=== PATIENT | male | born 1970 | race Caucasian/White ===

== ENCOUNTER 2019-11-27 06:47 | Inpatient (IN) | payer OTHER ==
[~2019-11-27] VITALS: Ht 175.3 cm; Wt 114.8 kg
[~2019-11-27 06:47] MED LIST: ASPIRIN EC81 M1 PO; CARVEDILOL6.25 MG PO; CELEXA20 MG PO; EFFIENT10 MG PO; LIPITOR 20 MG T20 M1 PO; LISINOPRIL5 MG PO; METFORMIN HCL500 MG PO; NITROGLYCERIN0.4 MG SUBLING; PLAVIX 75 MG TA75 M1 PO; STATINS; TOPROL XL100 MG PO
[2019-11-27 06:50] VITALS: BP 169/99
[2019-11-27 07:12] LABS: ABSOLUTE BASOPHILS 0.1 thou/uL (0.0-0.2); ABSOLUTE EOSINOPHILS 0.4 thou/uL (0.0-0.7); ABSOLUTE LYMPHOCYTES 3.2 thou/uL (0.8-5.3); ABSOLUTE MONOCYTES 1.2 thou/uL (0.0-1.2); ABSOLUTE NEUTROPHILS 7.1 thou/uL (1.6-8.1); BASOPHILS 1.2 %; EOSINOPHILS 3.4 %; HEMATOCRIT 52.6 % (42.0-52.0); LYMPHOCYTES 26.8 %; MCHC 34.3 g/dL (28.0-37.0); MCV 87.5 fL (80.0-100.0); MONOCYTES 9.9 %; MPV 9.6 fl. (7.2-11.1); NUCLEATED RBCS 0 /100WBC; PLATELET COUNT* 275 thou/uL (150-400); POLYS 58.7 %; RBC 6.01 mil/uL (4.50-6.00); RDW-CV 14.7 % (10.5-14.5)
[2019-11-27 07:23] LABS: CALCIUM 9.2 mg/dL (8.5-10.1); CREATININE 1.6 mg/dL (0.6-1.3)
[2019-11-27 07:25] LABS: POTASSIUM 4.3 mmol/L (3.5-5.1); PROTIME 10.2 Seconds (9.20-11.50)
[2019-11-27 07:38] LABS: CK-MB MASS 4.5 ng/mL (<0.5-3.6); MAGNESIUM 1.7 mg/dL (1.8-2.4); TOTAL BILIRUBIN 1.4 mg/dL (<0.1-1.0); TOTAL PROTEIN 8.3 g/dL (6.4-8.2)
--- NOTE | 2019-11-27 12:58 | EKG ---
[place] [address] ELECTROCARDIOGRAM REPORT Name: ALEXANDRU STEARNS Room: [place] [address] ADM IN .R.#: [id number] Admission: 11/27/19 Attend Phys: Joshua Rios, Discharge: Date of : 66 Date of Service: 11/27/19 0649 Report #: [id number] THIS REPORT FOR: //name// [facility] ED Test Date: 2019-11-27 Test Time: 06:49:53 Pat Name: ALEXANDRU STEARNS Department: Room: [facility] Gender: M Fisher Dip Net: MARCIO : 1970 Requested By: Sky Alcantara Order Number: [id number] MD: Marcus Jenkins Measurements Intervals [place] Rate: 148 P: LA: QRS: 7 QRSD: 108 T: 172 QT: 288 QTc: 453 Interpretive Statements Atrial fibrillation LVH with secondary repolarization abnormality Anterior Q waves, possibly due to LVH Compared to ECG 03/08/2017 05:31:39 Left ventricular hypertrophy now present Early repolarization now present Sinus bradycardia no longer present Electronically Signed On 11-27-2019 12:56:55 CDT by Marcus Jenkins [email or web address] <ELECTRONICALLY SIGNED> By: Marcus Jenkins MD, FAC 11/27/19 1256 0649 0649 Marcus Jenkins MD, FAC /EPI
[2019-11-27 13:18] VITALS: BP 123/80
[2019-11-27 14:09] VITALS: BP 103/61
[2019-11-27 15:00] VITALS: BP 130/86
--- NOTE | 2019-11-27 15:44 | 2DMMODE ---
[place] [address] 2 D/M-MODE ECHOCARDIOGRAM Name: ALEXANDRU STEARNS Room: [address] IN .Edvin.#: [id number] Admission: 11/27/19 Attend Phys: Joshua Rios, Discharge: Date of : 66 Date of Service: 11/27/19 1542 Report #: [id number] THIS REPORT FOR: cc: FAM - No family physician/PCP FAM - No family physician/PCP Marcus Jenkins MD [facility] ~ APPROVED REPORT Study performed: 11/27/2019 13:55:36 EXAM: Comprehensive 2D, Doppler, and color-flow Echocardiogram Patient Location: ER BSA: 2.31 HR: 77 bpm BP: 110/72 mmHg Other Information Study Quality: Fair Technically limited study due to uncooperative patient. Indications Atrial Fibrillation 2D Dimensions IVSd: 9.39 (7-11mm) LVOT Diam: 19.31 (18-24mm) LVDd: 52.55 mm PWd: 13.17 (7-11mm) Ascending Ao: 35.83 (22-36mm) LVDs: 42.56 (25-40mm) Aortic Root: 29.79 mm Volumes Left Atrial Volume (Systole) LA ESV Index: 30.30 mL/m2 Aortic Valve AoV Peak Jelani.: 0.99 m/s AO Peak Gr.: 3.92 mmHg LVOT Max P.45 mmHg AO Mean Gr.: 2.43 mmHg LVOT Mean P.17 mmHg LVOT Max V: 0.78 m/s AO V2 VTI: 13.21 cm LVOT Mean V: 0.50 m/s BERNARD (VTI): 2.45 cm2 LVOT V1 VTI: 11.06 [place] [address] 2 D/M-MODE ECHOCARDIOGRAM Name: ALEXANDRU STEARNS Room: [address] IN ..#: [id number] Admission: 11/27/19 Attend Phys: Joshua Rios, Discharge: Date of : 66 Date of Service: 11/27/19 1542 Report #: [id number] Mitral Valve E/A Ratio: 4.42 MV Decel. Time: 232.26 ms MV E Max Jelani.: 1.06 m/s MV PHT: 67.36 ms MVA (PHT): 3.27 cm2 TDI E/Lateral E': 11.78 E/Medial E': 13.25 Medial E' Jelani.: 0.08 m/s Lateral E' Jelani.: 0.09 m/s Pulmonary Valve PV Peak Jelani.: 0.85 m/s PV Peak Gr.: 2.89 mmHg Tricuspid Valve RAP Estimate: 5.00 mmHg TR Peak Gr.: 22.33 mmHg RVSP: 27.33 mmHg PA Pressure: 27.33 mmHg Left Ventricle The left ventricle is normal size. Moderate hypokinesis noted of the distal anteroseptal wall Mild concentric left ventricular hypertrophy. Left ventricular systolic function is moderately decreased. LVEF is 35-40%. Right Ventricle Right ventricle is borderline dilated. The right ventricular systolic function is normal. Atria The left atrium size is normal. Interatrial septum not well visualized. The right atrium size is normal. Aortic Valve The aortic valve is normal in structure. No aortic regurgitation is present. There is no aortic valvular stenosis. Mitral Valve The mitral valve is normal in structure. There is no mitral valve regurgitation noted. No evidence of mitral valve stenosis. Tricuspid Valve The tricuspid valve is normal in structure. Mild [place]icus[place] [address] 2 D/M-MODE ECHOCARDIOGRAM Name: ALEXANDRU STEARNS [place] Room: [address] IN [facility]#: [id number] Admission: 11/27/19 Attend Phys: Joshua Rios, Discharge: Date of : 66 Date of Service: 11/27/19 1542 Report #: [id number] Pulmonic Valve The pulmonary valve is normal in structure. There is no pulmonic valvular regurgitation. Great Vessels The aortic root is normal in size. IVC is not visualized. Pericardium There is no pericardial effusion. <Conclusion> Mild concentric left ventricular hypertrophy. LVEF is 35-40%. Moderate hypokinesis noted of the distal anteroseptal wall <ELECTRONICALLY SIGNED> By: Marcus Jenkins MD, [facility] 11/27/19 1542 1542 1542 Marcus Jenkins MD, FACC /INF
--- NOTE | 2019-11-27 16:51 | NUR ---
PT ADMITTED TO ROOM 219 FROM ED WITH AFIB RVR.CARDIZEM GTT STARTED IN ED AT 10 ML/HR. PT STILL AFIB ON MONITOR WITH RATE IN 70'S.PT SLEEPING AND LETHARGIC. VSS ON RA. PT IS UNABLE TO ANSWER MOST OF QUESTIONS APPROPRIATELY AT THIS TIME R/T BEING TIRED. CARDIOLOGY ROUNDED ON PT. EXIT ALARM IN PLACE.
--- NOTE | 2019-11-27 17:54 | NUR ---
PT IS AWAKE AT THIS TIME. PLEASANT. EDUCATED ON TREATMENTS, PLAN OF CARE, MEDICATIONS AND ACTIVITY. CLWR
[2019-11-27 20:00] VITALS: BP 90/57
[2019-11-28] VITALS: BP 108/73
--- NOTE | 2019-11-28 03:47 | NUR ---
ASSESSMENTS COMPLETED AT BEDSIDE PLEASE REFER TO CHARTING. MEDICATIONS ADMINISTERED PER MAR. PT HAS BEEN YELLING OUT BUT THEN STATES HE IS FINE WHEN YOU GO IN THERE. PT BEEN IMPULSIVE, GETTING UP WITHOUT ASSISTANCE AND SCREAMING. PT HAS MADE INAPPROPRAITE COMMENTS, ASKING NURSE GET GET IN BED WITH HIM AND TOUCHING LEG OF NURSE. PT WAS USING CHEWING TOBACCO AND WAS EDUCATED THAT IT WAS AGAINST OUR POLICES FOR HIM TO HAVE THAT. PT HAS HAD NO C/O PAIN THIS SHIFT. CURRENTLY IN RECLINER WITH CALL LIGHT WITHIN REACH.
[2019-11-28 04:10] VITALS: BP 127/82
[2019-11-28 04:57] LABS: HEMATOCRIT 46.7 % (42.0-52.0); MCH 30.1 pg (26.0-34.0); MCHC 34.1 g/dL (28.0-37.0); MCV 88.3 fL (80.0-100.0); MPV 10.2 fl. (7.2-11.1); RBC 5.29 mil/uL (4.50-6.00); RDW-CV 15.2 % (10.5-14.5); WBC 9.6 thou/uL (4.0-11.0)
[2019-11-28 05:07] LABS: HEMOGLOBIN 15.9 gm/dL (14.0-18.0)
[2019-11-28 05:15] LABS: ANION GAP 10 mmol/L (7-16); BUN 34 mg/dL (7-18); CALCIUM 8.5 mg/dL (8.5-10.1); CHLORIDE 101 mmol/L (98-107); CHOLESTEROL 238 mg/dL (<200); CO2 23 mmol/L (21-32); CREATININE 1.4 mg/dL (0.6-1.3); GLUCOSE 252 mg/dL (70-99); HDL CHOLESTEROL 28 mg/dL (>40); LDL CHOLESTEROL 165 mg/dL (<100); MAGNESIUM 1.6 mg/dL (1.8-2.4); POTASSIUM 4.1 mmol/L (3.5-5.1); SERUM ASSESSMENT CLEAR; SODIUM 134 mmol/L (136-145); TC:HDL 8.5 Ratio (Not establshd); TRIGLYCERIDE 228 mg/dL (<150); VLDL 46 mg/dL (<40)
[2019-11-28 07:09] LABS: GLYCOHEMOGLOBIN (HGB A1C) 9.7 % (4.8-5.6)
[2019-11-28 08:00] VITALS: BP 145/105
[2019-11-28 11:30] VITALS: BP 144/103
[2019-11-28 17:34] VITALS: BP 137/95
--- NOTE | 2019-11-28 19:27 | NUR ---
PT. AGITATED AND RESTLESS AT ASSUMTPTION OF SHIFT AND THROUGHOUT. REFUSED POST CATH VITAL SIGNS AND ASSESSMENT. DR. RM AND CHARGE NURSE NOTIFIED. PT. VERBALLY ABUSIVE, PULLED OUT PIV ON L AC. MIGUEL BANDAGE APPLIED TO PREVENT BLEEDING. PT REFUSED TO WEAR GOWN FOR TELEPACK STORAGE CAUSING LEAD FAILURES. IVF INFUSING IN PIV ON R FA. HOURLY ROUNDING PERFORMED. CALL LIGHT AND PERSONAL BELONGINGS PLACED WITHIN REACH. PT. CURRENTLY IN BED AND APPEARS CALM.
[2019-11-28 20:00] VITALS: BP 155/98
[2019-11-29 00:08] VITALS: BP 150/70
[2019-11-29 04:00] VITALS: BP 189/98
--- NOTE | 2019-11-29 04:31 | NUR ---
PT ALERT ORIENTED. UP AD ANYN IN ROOM. PT HAD CP AND R RADIAL PAIN TYLENOL GIVEN. PT CALLED OUT STATING HE WAS ANXIOUS. LORAZEPAM GIVEN. TELEMETRY SHOWS SR. WILL CONTINUE TO MONITOR.
[2019-11-29 05:09] LABS: HEMATOCRIT 43.3 % (42.0-52.0); HEMOGLOBIN 14.6 gm/dL (14.0-18.0); MCH 29.8 pg (26.0-34.0); MCHC 33.7 g/dL (28.0-37.0); MCV 88.2 fL (80.0-100.0); MPV 10.2 fl. (7.2-11.1); RBC 4.91 mil/uL (4.50-6.00); RDW-CV 14.8 % (10.5-14.5)
[2019-11-29 05:24] LABS: CALCIUM 8.1 mg/dL (8.5-10.1); CREATININE 1.3 mg/dL (0.6-1.3); POTASSIUM 4.1 mmol/L (3.5-5.1); TROPONIN-I LEVEL 0.39 ng/mL (<0.06)
[2019-11-29 08:00] VITALS: BP 146/84
[2019-11-29 12:37] VITALS: BP 154/95
[2019-11-29 16:32] VITALS: BP 204/99
--- NOTE | 2019-11-29 18:59 | NUR ---
PT VSS, A&OX4- SIGNIFICANT ANXIETY, SR ON TELE, DAY 1 POST CATH- RIGHT RADIAL SITE, CLEAN, DRY, NO HEMATOMA, ROOM AIR SATS HIGH 90S BUT REPORTS DIFFICULTY BREATHING. TELE PSYCH CONSULT TODAY, BEHAVIORLY COMPLEX, HOURLY ROUNDING PERFORMED, POSSESSION AND CALL LIGHT WITHIN REACH.
[2019-11-29 20:00] VITALS: BP 168/91
[2019-11-30 04:00] VITALS: BP 159/99
[2019-11-30 08:01] VITALS: BP 143/87
--- NOTE | 2019-11-30 09:12 | NUR ---
ASSUMED CARE OF PT THIS AM AROUND 07- ENERGY AUDITOR IN PLACE ORDERED, TRACING SR- UPON ASSESSMENT PT NOTED TO BE RESTING IN BED- PT A&O X4, FLAT AFFECT- CONT OF BOWEL AND BLADDER- UP AD-ANNY IN ROOM, STEADY GAIT NOTED- DIMINISHED LUNG SOUNDS NOTED, DYSPNEA NOTED ON EXERTION- VSS, O2 SAT 95-96%ON RA- ABD FIRM/ROUND/OBESE, BS X4 QUADS- LAST BM REPORTED 11/29/19- IV NOTED TO RIGHT AC INTACT AND SL- TRACE EDEMA NOTED TO BLE- RIGHT WRIST CATH SITE NOTED TO BE C/D/I WITH BANDAIDE TO SITE- BS MONITORED ORDERED WITH SSI PRESCRIBED- PT DENIES ANY C/O PAIN/DISCOMFORT AT THIS TIME- CALL LIGHT AND PERSONAL BELONGINGS WITH IN REACH- PT MAKES NEEDS KNOWN- ALL NEEDS MET AT THIS TIME-WCTM
[2019-11-30] MEDS ORDERED: CARVEDILOL3.125 MG PO (10:09)
[2019-11-30] MEDS ORDERED: COZAAR 50 MG TA50 M1 PO (10:09)
[2019-11-30] MEDS ORDERED: CLOPIDOGREL75 MG PO (10:09)
[2019-11-30] MEDS ORDERED: PAXIL 20 MG TAB20 M1 PO (10:09)
[2019-11-30] MEDS ORDERED: DILTIAZEM ER240 M1 PO (10:09)
[2019-11-30] MEDS ORDERED: TRAZODONE HCL100 MG PO (10:09)
[2019-11-30] MEDS ORDERED: HYDROXYZINE HCL25 M2 PO (10:09)
[2019-11-30] MEDS ORDERED: LASIX 40 MG TAB40 MG PO (10:11)
[2019-11-30] MEDS ORDERED: LIPITOR40 MG PO (10:12)
[2019-11-30 11:05] VITALS: BP 143/87
[2019-11-30 11:10] VITALS: BP 143/87
[2019-11-30] MEDS ORDERED: TOPROL XL100 MG PO (13:52)
[2019-11-30] MEDS ORDERED: LISINOPRIL5 MG PO (13:54)
[2019-11-30] MEDS ORDERED: NITROSTAT0.4 M1 PO (13:55)
--- NOTE | 2019-12-01 12:55 | CARD ---
[address] [address] CARDIAC CATH REPORT Name: ALEXANDRU STEARNS Room: [address]#: [id number] Admission: 11/27/19 Attend Phys: Joshua Rios MD Discharge: 11/30/19 Date of : 66 Report #: [id number] THIS REPORT FOR: //name// cc: YAQUELIN Pop No family physician/PCP YAQUELIN - No family physician/PCP ~ APPROVED REPORT Study performed: 11/28/2019 08:34:07 Patient Details Patient Status: In-Patient Room #: The patient is a 49 year-old male Event Personnel Marcus Jenkins Manufacturing Supervisor 2Nd Shift, Catherine Henriquez Wine Manager, Geneva Hoffman RTR Scrub, Rylie Thakkar RTR Monitor Procedures Performed Art Access - R radial artery, Left Heart Cath w/or w/o Coronaries LHC, ANAY Place w/wo Plasty Single CIRC , Hemostasis with Hemoband Indication Unstable angina , Chest pain Risk Factors Hypercholesterolemia, Hypertension, Diabetes Previous Procedures/Diagnoses Previous PCI, Previous [place] Admission/Lab Medications/Medications given during procedure Glycoprotein IllbIlla Inhibitors, Heparin Unfract., Nitroglycerin IA bolus 400 mcg total, Verapamil IA bolus 5 mg total, Heparin IV bolus 7000 units total, Aggrastat IV bolus 12 ml, Plavix PO 600 mg Procedure Narrative The patient was brought electively to the Cardiac Catheterization Laboratory and was prepped and draped in a sterile manner. The right wrist was infiltrated with 1% Lidocaine subcutaneous anesthesia. A 6F Slender Shobonier sheath was inserted into the right radial artery. Coronary angiography was performed [place] [address] CARDIAC CATH REPORT Name: ALEXANDRU STEARNS Room: [address]#: [id number] Admission: 11/27/19 Attend Phys: Joshua Rios MD Discharge: 11/30/19 Date of : 66 Report #: [id number] catheters. The right coronary system was accessed and visualized with a 6F JR4 catheter. The left coronary system was accessed and visualized with a 6F JL4 catheter. The left ventricle was accessed and visualized with a 6F JR4 catheter. Left ventricular/Aortic Valve gradient assessed via catheter pullback. Closure device was deployed with a 6 Fr Radial Vasc Band 29cm. The patient tolerated the procedure well and there were no complications associated with the procedure. There was no hematoma. Intraoperative Conscious Sedation Sedation start time: 10:07 Case end Time: 10:53 Fentanyl 50 mcg Fluoro Time: 13.5 minutes Dose: DAP 364793 cGycm2 3210 mGy Contrast Type and Amount: Visipaque 150 ml Coronary Angiography The patient's coronary anatomy is left dominant. Diagnostic Cath Left Main 0% stenosis LAD 30% proximal and 60% mid stenosis noted. Stent in mid lad after second diagonal branch was 100% occluded Circumflex Stent in mid circumflex was 80% stenosed. 1st marginal branch had a 70% proximal stenosis Right Coronary proximal chronic 100% stenosis with antegrade collaterals Left Ventriculography Left Ventriculography was not performed. Hemodynamics The aortic pressure is 116/79 mmHg with a mean of 94 mmHg. The left ventricular pressure is 128/20 mmHg with a mean of mmHg. The left ventricular end diastolic pressure is 27 mmHg. There was no gradient across the aortic valve upon pullback. Pullback from the left ventricle to the aorta revealed no gradient across the aortic valve. PCI Technique Lesion Anticoagulation was achieved with Heparin. bolus of iv aggrastat given Percutaneous coronary intervention was performed on the mid circumflex artery segment. The lesion stenosis prior to intervention was 80% with THIEN 3 flow. A 6FR XB LAD 3.0 100CM [place] [address] CARDIAC CATH REPORT Name: ALEXANDRU STEARNS Room: [address]#: [id number] Admission: 11/27/19 Attend Phys: Joshua Rios MD Discharge: 11/30/19 Date of : 66 Report #: [id number] used to engage the left main ostium. A BMW 190cm Interventional Guidewire was used to cross the lesion. BALLOON DILATION A Balloon catheter Euphora SC 2.5x10 was inserted and inflated up to 18.00atm for 19seconds. Repeat angiography revealed the following post-dilatation results: 30% stenosis. STENT DEPLOYMENT A drug-eluting stent [place] RX Stent 3.0X22mm was inserted and inflated up to 16.00atm for 19seconds. Repeat angiography revealed the following post-stent deployment results: 0% stenosis. Additional Inflation: 17.00atm for 15seconds. Additional Inflation: 18.00atm for 17seconds. Final angiography reveals 0 % stenosis with THIEN 3 flow. PCI Technique Lesion 2 Percutaneous Coronary Intervention was performed on the mid left anterior descending artery segment. Percutaneous coronary intervention was performed on the mid left anterior descending artery segment. The lesion stenosis prior to intervention was 100% with THIEN 0 flow. A xblad3.0 Guide Catheter was used to engage the lm ostium. A bmw and choice pt extra support Interventional Guidewire was used to cross the lesion. Balloon Dilation Unable to cross lesion with neither a BMW nor Choice PT extrasupport wire. The stenosis was felt to be chronic, and no further efforts were made to cross the lestion. Conclusion 1. 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 80% stenosis of a stent in the mid circumflex artery. 3. Chronic occlusion of the rca 4. unsuccessful placement of a guide wire across the occlusion in the lad 5. successful placement of a drug eluting stent in the mid circumflex artery. Recommendations Cardiac Rehabilitation Referral [facility] [place] [address] CARDIAC CATH REPORT Name: ALEXANDRU STEARNS Room: [address]#: [id number] Admission: 11/27/19 Attend Phys: Joshua Rios MD Discharge: 11/30/19 Date of : 66 Report #: [id number] Medications Administered Clopidogrel <ELECTRONICALLY SIGNED> By: Marcus Jenkins MD, FACC 12/01/19 1253 1253 1253Davianshul Jenkins MD, FACC /INF
--- NOTE | 2019-12-01 15:21 | CON ---
[address] [address] CONSULTATION Name: ALEXANDRU STEARNS Room: [address] IN M.R.#: [id number] Admission: 11/27/19 Attend Phys: Joshua Rios MD Discharge: 11/30/19 Date of : 66 Report #: [id number] THIS REPORT FOR: //name// cc: YAQUELIN Neil family physician/PCP YAQUELIN - No family physician/PCP ~ THIS REPORT FOR: //name// CC: YAQUELIN physician/PCP Joshua Rios DATE OF SERVICE: 11/27/2019 CARDIOLOGY CONSULTATION HISTORY OF PRESENT ILLNESS: The patient is a 49-year-old single white male who I was asked to see in the hospital today after he was noted to be in atrial fibrillation. The patient was actually admitted to [facility] in 02/2017 with chest pain. He was seen by Dr. Hoskins, who performed a cardiac catheterization. He has had a 90% narrowing of the mid LAD and the right coronary artery is chronically occluded. Dr. Hoskins placed stents in the LAD. Ejection fraction at that time was 60%. The patient has not been seen since that time. He came to the Emergency Room early this morning with chest discomfort, went down his left arm, felt a sharp pain. He was noted to be in atrial fibrillation. He was started on IV diltiazem. Cardiology consultation was requested. At this time, the patient is sedated and unable to give any history. He previously had been on lisinopril, Effient, Lipitor, and metoprolol. PAST MEDICAL HISTORY: He has had knee surgery. He has a history of diabetes, hypertension, and hyperlipidemia. MEDICATIONS: His previous medications included Lipitor. ALLERGIES: He has no known drug allergies. FAMILY HISTORY: Negative for heart disease. SOCIAL HISTORY: He is , lives by himself in [place]. 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 No smoking. Rarely drinks alcohol. He has no medical insurance. REVIEW OF SYSTEMS: No history of stroke. He does snore at night. No history of asthma, peptic ulcer disease, liver disease, kidney disease or cancer. He has a history of depression. No chronic skin condition. PHYSICAL EXAMINATION: GENERAL: Revealed an obese middle-aged male, lying in bed, [place] [address] CONSULTATION Name: ROMULOZAINALEXANDRU Room: [address]#: [id number] Admission: 11/27/19 Attend Phys: Joshua Rios MD Discharge: 11/30/19 Date of : 66 Report #: [id number]. VITAL SIGNS: He had a blood pressure of 140/70, pulse was initially 140 and he was afebrile. HEENT: He was anicteric. Conjunctivae were pink. Mucous membranes moist. NECK: Veins were difficult to assess due to obesity. CHEST: Clear to auscultation. CARDIOVASCULAR: Irregular, tachycardia. ABDOMEN: Soft. EXTREMITIES: He had no pitting edema. SKIN: Cool and dry. NEUROLOGIC: Nonfocal. DIAGNOSTIC STUDIES: ECG on admission showed atrial fibrillation, rapid ventricular response rate, nonspecific ST and T-wave change. The patient had an echocardiogram in the clinic today that showed an ejection fraction 35-40%. His x-rays this morning, he had a portable chest x-ray, normal heart size, clear lung martinez. LABORATORY DATA: Sodium 133, BUN 38, creatinine 1.6, glucose 352. SGOT 62, SGPT 73, alkaline phosphatase apparently was not done, it was 102. Bilirubin 0.3. Troponin 0.09. BNP 2641. His white blood cell count was 12.0 and hemoglobin 18. IMPRESSION AND RECOMMENDATIONS: 1. Chest pain. Previous stents. No evidence of acute myocardial infarction. Recommend conservative approach. 2. Cardiomyopathy. Recommend an MIGUEL and a beta-viola. 3. Atrial fibrillation. Recommend rate control at this time. We will consider anticoagulation. 4. Obesity. 5. Chronic kidney disease. <ELECTRONICALLY SIGNED> By: Marcus Jenkins MD, [facility] 12/01/19 1521 1604 2216Marcus Jenkins MD, FAC /nt
--- NOTE | 2019-12-01 16:06 | EKG ---
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 : 1970 Requested By: Joshua Rios Order Number: [id number] Joshua MD: Arnav Hoskins Measurements Intervals [place] Rate: 89 P: IA: QRS: 16 QRSD: 111 T: 162 QT: 431 QTc: 525 Interpretive Statements Atrial fibrillation Anteroseptal infarct, old Abnormal T, consider ischemia, lateral leads Prolonged QT interval Compared to ECG 11/27/2019 06:49:53 Myocardial infarct finding now present T-wave abnormality now present Possible ischemia now present Prolonged QT interval now present Left ventricular hypertrophy no longer present Electronically Signed On 12-01-2019 16:04:11 CDT by Arnav Hoskins [email or web address] <ELECTRONICALLY SIGNED> By: Arnav Hoskins MD, [facility] 12/01/19 1604 11 11 Arnav Hoskins MD, [facility] /EPI
--- NOTE | 2019-12-01 16:06 | EKG ---
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: : 1970 Requested By: Joshua Rios Order Number: [id number] Joshua MD: Arnav Hoskins Measurements Intervals [place] Rate: 61 P: CA: QRS: 16 QRSD: 115 T: 176 QT: 446 QTc: 450 Interpretive Statements Atrial fibrillation Nonspecific intraventricular conduction delay Anteroseptal infarct, old possible Abnormal T, consider ischemia, diffuse leads Compared to ECG 11/27/2019 06:49:53 Intraventricular conduction delay now present Myocardial infarct finding now present T-wave abnormality now present Possible ischemia now present Left ventricular hypertrophy no longer present Early repolarization no longer present Electronically Signed On 12-01-2019 16:04:59 CDT by Arnav Hoskins [email or web address] <ELECTRONICALLY SIGNED> By: Arnav Hoskins MD, [facility] 12/01/19 1604 14 14 Arnav Hoskins MD, [facility] /EPI
--- NOTE | 2019-12-01 16:12 | EKG ---
[place] [address] ELECTROCARDIOGRAM REPORT Name: ALEXANDRU STEARNS Room: [address] [place] IN M.R.#: [id number] Admission: 11/27/19 Attend Phys: Joshua Rios, Discharge: 11/30/19 Date of : 66 Date of Service: 11/29/19 1645 Report #: [id number] THIS REPORT FOR: //name// [facility] Test Date: 2019-11-29 Test Time: 16:45:50 Pat Name: ALEXANDRUKesha STEARNS Department: Room: [address] Gender: M Manager Administration: JULIAN : 1970 Requested By: Marcus Jenkins Order Number: [id number] Joshua MD: Arnav Hoskins Measurements Intervals [place] Rate: 72 P: 32 AL: 162 QRS: 12 QRSD: 106 T: 183 QT: 420 QTc: 460 Interpretive Statements Sinus rhythm LVH with secondary repolarization abnormality Anterior infarct, old Compared to ECG 11/27/2019 06:49:53 Myocardial infarct finding now present Atrial fibrillation no longer present Electronically Signed On 12-01-2019 16:10:33 CDT by Arnav Hoskins [email or web address] <ELECTRONICALLY SIGNED> By: Arnav Hoskins MD, [facility] 12/01/19 1610 1645 1645 Arnav Hoskins MD, [facility] /EPI
--- NOTE | 2019-12-01 16:16 | EKG ---
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 : 1970 Requested By: Marcus Jenkins Order Number: [id number] Joshua MD: Arnav Hoskins Measurements Intervals [place] Rate: 69 P: 20 CO: 170 QRS: 3 QRSD: 118 T: 164 QT: 421 QTc: 451 Interpretive Statements Sinus rhythm LVH with secondary repolarization abnormality Anterior infarct, old possible Compared to ECG 11/27/2019 06:49:53 Myocardial infarct finding persists Electronically Signed On 12-01-2019 16:14:32 CDT by Arnav Hoskins [email or web address] <ELECTRONICALLY SIGNED> By: Arnav Hoskins MD, [facility] 12/01/19 1614 1041 1041 Arnav Hoskins MD, [facility] /EPI
== END 2019-11-30 14:15 | disposition home or self-care (01) | DRG 247 ==
LOC: M.ERS 06:47 → M.2W 07:40 → M.TBA-ER 07:40 → M.2W 14:45
PROVIDERS: Family Medicine; Internal Medicine Cardiovascular Disease; ADMIT Internal Medicine
PROC: 3E033PZ Introduction of Platelet Inhibitor into Peripheral Vein, Percutaneous Approach (ICD-10-PCS; 2019-11-28)
PROC: 027034Z Dilation of Coronary Artery, One Artery with Drug-eluting Intraluminal Device, Percutaneous Approach (ICD-10-PCS; 2019-11-28)
PROC: 4A023N7 Measurement of Cardiac Sampling and Pressure, Left Heart, Percutaneous Approach (ICD-10-PCS; 2019-11-28)
PROC: B2111ZZ Fluoroscopy of Multiple Coronary Arteries using Low Osmolar Contrast (ICD-10-PCS; 2019-11-28)
PROC: 5A2204Z Restoration of Cardiac Rhythm, Single (ICD-10-PCS; principal; 2019-11-30)
DX: I25.110 Atherosclerotic heart disease of native coronary artery with unstable angina pectoris (principal); I13.0 Hypertensive heart and chronic kidney disease with heart failure and stage 1 through stage 4 chronic kidney disease, or unspecified chronic kidney disease; I50.22 Chronic systolic (congestive) heart failure; I48.20 Chronic atrial fibrillation, unspecified; T82.867A Thrombosis due to cardiac prosthetic devices, implants and grafts, initial encounter; I25.2 Old myocardial infarction; E66.9 Obesity, unspecified; I12.9 Hypertensive chronic kidney disease with stage 1 through stage 4 chronic kidney disease, or unspecified chronic kidney disease; N18.9 Chronic kidney disease, unspecified; F32.9 Major depressive disorder, single episode, unspecified; G47.00 Insomnia, unspecified; E78.5 Hyperlipidemia, unspecified; E11.22 Type 2 diabetes mellitus with diabetic chronic kidney disease; F41.1 Generalized anxiety disorder; I25.5 Ischemic cardiomyopathy; Y84.0 Cardiac catheterization as the cause of abnormal reaction of the patient, or of later complication, without mention of misadventure at the time of the procedure; I25.82 Chronic total occlusion of coronary artery; Z79.01 Long term (current) use of anticoagulants; Z95.5 Presence of coronary angioplasty implant and graft; Z79.84 Long term (current) use of oral hypoglycemic drugs; Z79.82 Long term (current) use of aspirin; Z79.899 Other long term (current) drug therapy; Z68.37 Body mass index [BMI] 37.0-37.9, adult; Y92.89 Other specified places as the place of occurrence of the external cause

== ENCOUNTER 2020-04-15 08:40 | Inpatient (IN) | payer OTHER ==
[~2020-04-15] VITALS: Ht 175.3 cm; Wt 124.3 kg
--- NOTE | ~2020-04-15 | CON ---
[address] [address] CONSULTATION Name: ALEXANDRU STEARNS Room: [address] IN .R.#: [id number] Admission: 04/15/20 Attend Phys: Christal Vidales MD Discharge: Date of : 66 Report #: [id number] THIS REPORT FOR: //name// cc: YAQUELIN Neil family physician/PCP YAQUELIN Neil family physician/PCP ~ THIS REPORT FOR: //name// CC: YAQUELIN physician/PCP Christal Vidales DATE OF SERVICE: 04/16/2020 CARDIOLOGY CONSULTATION LOCATION: The patient seen in the ICU on 04/16/2020. HISTORY OF PRESENT ILLNESS: The patient is a patient who presented to the ER yesterday with shortness of breath, speech difficulty, and chest discomfort. He was noted to have markedly elevated blood sugar of 637 mg% percent and was acidotic with the bicarbonate of 17. Since admission, he has been treated for diabetic ketoacidosis. Blood sugar has essentially normalized. The slurred speech has remitted. Acute CT revealed no evidence for acute bleed. He denies any chest pain at this point and on questioning, it is clear that he did not experience significant chest discomfort yesterday. It was predominantly shortness of breath with alteration in speech. He denies history of antecedent myocardial infarction. He does have risk factors for coronary artery disease, most notably diabetes, which has been poorly controlled with recent dietary indiscretion. PAST MEDICAL HISTORY: Remarkable for diabetes, history of atrial fibrillation, and a question of cardiomyopathy. SOCIAL HISTORY: There is a question of significant prior cigarette use. REVIEW OF SYSTEMS: ENDOCRINE: He notes poorly controlled diabetes for some time with dietary indiscretion. GENERAL: There has been significant weight excess. CARDIAC: He denies history of myocardial infarction, but did note shortness of breath on admission. [place] [address] CONSULTATION Name: ALEXANDRU STEARNS [place] Room: [address] IN [facility]#: [id number] Admission: 04/15/20 Attend Phys: Christal Vidales MD Discharge: Date of : 66 Report #: [id number] PHYSICAL EXAMINATION: GENERAL: Demonstrates not acutely distressed, overweight, middle-aged male. VITAL SIGNS: Blood pressure is 170/80, pulse rate is 82, and respirations are 18 per minute. NECK: Jugular venous pressure is normal. Carotids are 1-2+. CHEST: Clear. CARDIAC: Reveals normal first heart sound with increased second heart sound and a soft systolic murmur. ABDOMEN: Obese. EXTREMITIES: Satisfactorily perfused. EKG reveals sinus rhythm, possible inferior and anteroseptal scars without acute ischemic changes. LABORATORY DATA: Hemoglobin 15.8, white blood cell count 8200 with 204,000 platelets. Sodium 134, potassium 5.2, BUN 18, creatinine 1.1, glucose 251 down from 637, CO2 of 23. Hemoglobin A1c 9.7. CK 196. C-reactive protein less than 2. NT-BNP 1606. Triglycerides 785, cholesterol 246. IMPRESSION: 1. Diabetic ketoacidosis with severely uncontrolled diabetes. 2. Slurred speech on admission, which has cleared without evidence for acute intracranial event on CT scan. 3. EKG suggests antecedent myocardial infarctions with question of heart failure on admission. 4. Hypertension. 5. Exogenous obesity. RECOMMENDATIONS: 1. Continue to control diabetes. 2. Echocardiogram regarding global and segmental LV function. 3. Continue to focus on systemic pressure and metabolic control. We will follow with you. Critical care time is 35 minutes from 11:45 to 12:20 on 04/16/2020. By: [id number] Everardo Hoskins MD, FACC /nt
[~2020-04-15 08:40] MED LIST changes: +CARVEDILOL3.125 MG PO; +CLOPIDOGREL75 MG PO; +COZAAR 50 MG TA50 M1 PO; +DILTIAZEM ER240 M1 PO; +HYDROXYZINE HCL25 M2 PO; +LASIX 40 MG TAB40 MG PO; +LIPITOR40 MG PO; +NITROSTAT0.4 M1 PO; +PAXIL 20 MG TAB20 M1 PO; +TRAZODONE HCL100 MG PO
[2020-04-15 08:47] VITALS: BP 170/102
[2020-04-15 09:17] LABS: ABSOLUTE BASOPHILS 0.1 thou/uL (0.0-0.2); ABSOLUTE EOSINOPHILS 0.3 thou/uL (0.0-0.7); ABSOLUTE LYMPHOCYTES 2.7 thou/uL (0.8-5.3); ABSOLUTE MONOCYTES 0.8 thou/uL (0.0-1.2); ABSOLUTE NEUTROPHILS 4.4 thou/uL (1.6-8.1); EOSINOPHILS 3.2 %; HEMATOCRIT 48.8 % (42.0-52.0); HEMOGLOBIN 17.5 gm/dL (14.0-18.0); LYMPHOCYTES 32.6 %; MCHC 35.8 g/dL (28.0-37.0); MCV 86.6 fL (80.0-100.0); MONOCYTES 9.6 %; MPV 8.5 fl. (7.2-11.1); NUCLEATED RBCS 0 /100WBC; PLATELET COUNT* 258 thou/uL (150-400); POLYS 53.6 %; RBC 5.64 mil/uL (4.50-6.00); RDW-CV 12.6 % (10.5-14.5); WBC 8.3 thou/uL (4.0-11.0)
[2020-04-15 09:19] LABS: CALCIUM 8.5 mg/dL (8.5-10.1); CREATININE 1.6 mg/dL (0.6-1.3)
[2020-04-15 09:22] LABS: APTT 25.7 Seconds (25.0-31.3); PROTIME 9.9 Seconds (9.20-11.50)
[2020-04-15 09:27] LABS: ALBUMIN 3.7 g/dL (3.4-5.0); TOTAL BILIRUBIN 0.7 mg/dL (<0.1-1.0); TOTAL PROTEIN 7.6 g/dL (6.4-8.2)
[2020-04-15 10:27] LABS: URINE BILIRUBIN NEGATIVE (Negative); URINE BLOOD NEGATIVE (Negative); URINE CLARITY CLEAR; URINE COLOR YELLOW; URINE GLUCOSE-RANDOM 3+ (Negative); URINE KETONES NEGATIVE (Negative); URINE LEUKOCYTES-REFLEX NEGATIVE (Negative); URINE NITRITE-REFLEX NEGATIVE (Negative); URINE PROTEIN NEGATIVE (Negative); URINE UROBILINOGEN 0.2 E.U./dl (0.2-1.0)
--- NOTE | 2020-04-15 10:29 | EKG ---
[place] [address] ELECTROCARDIOGRAM REPORT Name: ALEXANDRU STEARNS Room: 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 <ELECTRONICALLY SIGNED> By: Marcus Jenkins MD, [facility] 04/15/20 1029 0847 0847 Marcus Jenkins MD, [facility] /EPI
[2020-04-15 10:49] LABS: AMP/METHAMP Negative (Negative); BARBITURATES Negative (Negative); BENZODIAZEPINES Negative (Negative); COCAINE Negative (Negative); METHADONE Negative (Negative); OPIATES Negative (Negative); PCP Negative (Negative); THC Negative (Negative)
[2020-04-15 10:53] LABS: PCO2 VENOUS 31.7 mmHg (41.0-51.0); PO2 VENOUS 73.4 mmHg (35.0-45.0)
[2020-04-15 11:04] LABS: BE -7.4 mmol/L (-2 to +3); PCO2 32.1 mmHg (35.0-45.0); PO2 82.2 mmHg (75.0-100.0)
[2020-04-15 12:04] VITALS: BP 153/81
[2020-04-15 13:23] LABS: CALCIUM 8.1 mg/dL (8.5-10.1); CREATININE 1.5 mg/dL (0.6-1.3); POTASSIUM 4.3 mmol/L (3.5-5.1)
[2020-04-15 13:34] LABS: ALBUMIN 3.2 g/dL (3.4-5.0); CALCIUM 8.1 mg/dL (8.5-10.1); CREATININE 1.4 mg/dL (0.6-1.3); MAGNESIUM 1.9 mg/dL (1.8-2.4); PHOSPHORUS* 2.4 mg/dL (2.5-4.9); POTASSIUM 4.2 mmol/L (3.5-5.1)
--- NOTE | 2020-04-15 16:32 | 2DMMODE ---
[place] [address] 2 D/M-MODE ECHOCARDIOGRAM Name: ALEXANDRU STEARNS Room: [address] ADM IN M.R.#: [id number] Admission: 04/15/20 Attend Phys: Christal Vidales, Discharge: Date of : 66 Date of Service: 04/15/20 1631 Report #: [id number] THIS REPORT FOR: cc: FAM - No family physician/PCP FAM - No family physician/PCP Marcus Jenkins MD [facility] ~ APPROVED REPORT Study performed: 04/15/2020 14:33:02 EXAM: Limited 2D Echocardiogram Patient Location: Bedside BSA: 2.40 HR: 81 bpm BP: 153/81 mmHg Other Information Study Quality: Good Indications Chest Pain 2D Dimensions IVSd: 10.34 (7-11mm) LVOT Diam: 20.09 (18-24mm) LVDd: 49.94 mm PWd: 14.25 (7-11mm) Ascending Ao: 32.00 (22-36mm) LVDs: 37.76 (25-40mm) Aortic Root: 25.69 mm Left Ventricle The left ventricle is normal size. moderate hypokinesis noted of the mid and distal anterior wall and apex Mild concentric left ventricular hypertrophy. LVEF is 40-45%. Right Ventricle The right ventricle is normal size. The right ventricular systolic function is normal. Atria The left atrium size is normal. The right atrium size is normal. Aortic Valve The aortic valve [place] [address] 2 D/M-MODE ECHOCARDIOGRAM Name: ALEXANDRU STEARNS Room: [address] IN [facility].#: [id number] Admission: 04/15/20 Attend Phys: Christal Vidales, Discharge: Date of : 66 Date of Service: 04/15/201630 Report #: [id number] Mitral Valve The mitral valve is normal in structure. Tricuspid Valve The tricuspid valve is normal in structure. Pulmonic Valve Pulmonic valve is not well visualized. Great Vessels The aortic root is normal in size. IVC is not well visualized. <Conclusion> LVEF is 40-45%. moderate hypokinesis noted of the mid and distal anterior wall and apex Mild concentric left ventricular hypertrophy. <ELECTRONICALLY SIGNED> By: Marcus Jenkins MD, FACC 04/15/201630 30 30 Marcus Jenkins MD, FACC /INF
[2020-04-15 18:57] LABS: CALCIUM 8.6 mg/dL (8.5-10.1); CREATININE 1.2 mg/dL (0.6-1.3); POTASSIUM 3.9 mmol/L (3.5-5.1)
[2020-04-15 19:00] VITALS: BP 170/85
[2020-04-15 19:00] LABS: ALBUMIN 3.2 g/dL (3.4-5.0); MAGNESIUM 1.9 mg/dL (1.8-2.4); PHOSPHORUS* 3.2 mg/dL (2.5-4.9)
[2020-04-15 19:59] VITALS: BP 154/63
[2020-04-15 20:59] VITALS: BP 165/84
[2020-04-15 21:55] LABS: CALCIUM 8.5 mg/dL (8.5-10.1); CREATININE 1.2 mg/dL (0.6-1.3); POTASSIUM 4.1 mmol/L (3.5-5.1)
[2020-04-15 21:58] LABS: ALBUMIN 3.1 g/dL (3.4-5.0); MAGNESIUM 1.9 mg/dL (1.8-2.4); PHOSPHORUS* 3.5 mg/dL (2.5-4.9)
[2020-04-16] VITALS (13 sets, daily range): BP systolic 136–227; BP diastolic 58–138
[2020-04-16 02:37] LABS: HEMATOCRIT 46.2 % (42.0-52.0); HEMOGLOBIN 15.8 gm/dL (14.0-18.0); MCH 29.8 pg (26.0-34.0); MCHC 34.3 g/dL (28.0-37.0); MCV 86.9 fL (80.0-100.0); MPV 8.7 fl. (7.2-11.1); RBC 5.32 mil/uL (4.50-6.00); RDW-CV 12.8 % (10.5-14.5); WBC 8.2 thou/uL (4.0-11.0)
[2020-04-16 02:47] LABS: CHOLESTEROL 246 mg/dL (<200); HDL CHOLESTEROL 21 mg/dL (>40); TC:HDL 11.7 Ratio (Not establshd); TRIGLYCERIDE 785 mg/dL (<150); VLDL 157 mg/dL (<40)
[2020-04-16 02:48] LABS: ALBUMIN 3.3 g/dL (3.4-5.0); CALCIUM 8.2 mg/dL (8.5-10.1); CREATININE 1.1 mg/dL (0.6-1.3); MAGNESIUM 1.9 mg/dL (1.8-2.4); PHOSPHORUS* 2.5 mg/dL (2.5-4.9); TOTAL BILIRUBIN 0.8 mg/dL (<0.1-1.0); TOTAL PROTEIN 6.9 g/dL (6.4-8.2)
[2020-04-16 02:49] LABS: POTASSIUM 5.2 mmol/L (3.5-5.1); SERUM ASSESSMENT Gross Lipemia
[2020-04-17] VITALS (7 sets, daily range): BP systolic 171–190; BP diastolic 88–94
[2020-04-17 02:30] LABS: ABSOLUTE BASOPHILS 0.1 thou/uL (0.0-0.2); ABSOLUTE EOSINOPHILS 0.6 thou/uL (0.0-0.7); ABSOLUTE LYMPHOCYTES 2.2 thou/uL (0.8-5.3); ABSOLUTE MONOCYTES 1.1 thou/uL (0.0-1.2); BASOPHILS 1.2 %; EOSINOPHILS 6.6 %; HEMATOCRIT 46.3 % (42.0-52.0); HEMOGLOBIN 16.3 gm/dL (14.0-18.0); LYMPHOCYTES 24.5 %; MCH 30.7 pg (26.0-34.0); MCHC 35.1 g/dL (28.0-37.0); MCV 87.5 fL (80.0-100.0); MONOCYTES 12.3 %; MPV 8.6 fl. (7.2-11.1); NUCLEATED RBCS 0 /100WBC; PLATELET COUNT* 224 thou/uL (150-400); POLYS 55.4 %; RDW-CV 12.6 % (10.5-14.5)
[2020-04-17 02:39] LABS: ALBUMIN 3.4 g/dL (3.4-5.0); ALKALINE PHOSPHATASE 72 U/L (46-116); ANION GAP 6 mmol/L (7-16); BUN 13 mg/dL (7-18); CALCIUM 8.6 mg/dL (8.5-10.1); CHLORIDE 102 mmol/L (98-107); CO2 27 mmol/L (21-32); CREATININE 1.1 mg/dL (0.6-1.3); GLUCOSE 246 mg/dL (70-99); PHOSPHORUS* 2.7 mg/dL (2.5-4.9); POTASSIUM 4.6 mmol/L (3.5-5.1); SGOT 31 U/L (15-37); SGPT 52 U/L (30-65); SODIUM 135 mmol/L (136-145); TOTAL BILIRUBIN 0.9 mg/dL (<0.1-1.0); TOTAL PROTEIN 7.2 g/dL (6.4-8.2)
[2020-04-17] MEDS ORDERED: ZESTRIL10 MG PO (08:39)
[2020-04-17] MEDS ORDERED: CLONIDINE1 EACH TRANSDERM (08:39)
[2020-04-17] MEDS ORDERED: ATORVASTATIN CA80 MG PO (08:39)
[2020-04-17] MEDS ORDERED: GLYBURIDE 5 MG T5 M1 PO (08:39)
[2020-04-17] MEDS ORDERED: GEMFIBROZIL 60600 M1 PO (08:39)
[2020-04-17] MEDS ORDERED: PIOGLITAZONE15 MG PO (08:44)
[2020-04-17] MEDS ORDERED: NITROSTAT0.4 M1 PO (10:42)
[2020-04-17] MEDS ORDERED: ASPIRIN EC81 M1 PO (10:42)
[2020-04-17] MEDS ORDERED: TRAZODONE HCL100 MG PO (10:42)
[2020-04-17] MEDS ORDERED: CLOPIDOGREL75 MG PO (10:42)
[2020-04-17] MEDS ORDERED: METFORMIN HCL500 MG PO (10:42)
[2020-04-17] MEDS ORDERED: PAXIL 20 MG TAB20 M1 PO (10:42)
[2020-04-17] MEDS ORDERED: LASIX 40 MG TAB40 MG PO (10:42)
[2020-04-17] MEDS ORDERED: HYDROXYZINE HCL25 M2 PO (10:42)
== END 2020-04-17 15:25 | disposition home or self-care (01) | DRG 637 ==
LOC: M.ERS 08:40 → M.TBA-ER 11:13 → M.ICU 12:22
PROVIDERS: Emergency Medicine Emergency Medical Services; ADMIT Internal Medicine; ATTEND Internal Medicine
DX: E11.00 Type 2 diabetes mellitus with hyperosmolarity without nonketotic hyperglycemic-hyperosmolar coma (NKHHC) (principal); G93.41 Metabolic encephalopathy; E87.1 Hypo-osmolality and hyponatremia; E11.10 Type 2 diabetes mellitus with ketoacidosis without coma; R51.9 Headache, unspecified; E86.0 Dehydration; I25.10 Atherosclerotic heart disease of native coronary artery without angina pectoris; I10 Essential (primary) hypertension; Z20.828 Contact with and (suspected) exposure to other viral communicable diseases; Z91.14 Patient's other noncompliance with medication regimen; Z95.5 Presence of coronary angioplasty implant and graft; Z79.01 Long term (current) use of anticoagulants; Z79.84 Long term (current) use of oral hypoglycemic drugs; Z79.82 Long term (current) use of aspirin; Z79.899 Other long term (current) drug therapy; Z86.73 Personal history of transient ischemic attack (TIA), and cerebral infarction without residual deficits; Z23 Encounter for immunization

== ENCOUNTER 2021-07-19 13:12 | Emergency (ER) | payer MEDICAID ==
[~2021-07-19] VITALS: Ht 175.3 cm; Wt 127.0 kg
[~2021-07-19 13:12] MED LIST changes: +ATORVASTATIN CA80 MG PO; +CLONIDINE1 EACH TRANSDERM; +GEMFIBROZIL 60600 M1 PO; +GLYBURIDE 5 MG T5 M1 PO; +PIOGLITAZONE15 MG PO; +ZESTRIL10 MG PO
[2021-07-19 16:44] VITALS: BP 0/0
== END 2021-07-19 16:44 | disposition home or self-care (01) ==
LOC: M.ERS 13:12
DX: R06.02 Shortness of breath (principal); Z53.21 Procedure and treatment not carried out due to patient leaving prior to being seen by health care provider